=== PATIENT | female | born 1965 | race Caucasian/White ===

== ENCOUNTER 2019-01-19 14:19 | Observation (INO) ==
[2019-01-19] MEDS ORDERED: methylPREDNISolone 125 MG/2 ML VIAL IVP ONE (14:30)
[2019-01-19] MEDS ORDERED: 0.9 % Sodium Chloride 1,000 ML IVC ONE (14:30)
[2019-01-19] MEDS ORDERED: Albuterol 2.5 MG/3 ML NEBULIZER IH ONE ×2 (14:30→15:27)
[2019-01-19] MEDS ORDERED: Ipratropium/Albuterol Neb 3 ML IH ONE (14:30)
--- NOTE | 2019-01-19 14:38 | Emergency Department Note ---
Disposition Clinical Impression: Acute exacerbation of chronic obstructive airways disease Disposition: Admitted As Inpatient Time of Disposition: 16:00 ( will admit) SOB HPI - General Chief Complaint: ED Shortness of Breath/Dyspnea Stated Complaint: helio Time Seen by Provider: 01/19/19 14:36 Source: patient, other Mode of arrival: ambulatory Limitations: no limitations Nursing Notes Reviewed: Yes Vital Signs Reviewed: Yes - History of Present Illness 53-year-old female with history of smoking 1 pack a day 30+ years presents to triage with complaints of shortness of breath moderate respiratory distress. Patient is having active wheezing on exam, and having a difficult time speaking secondary to shortness of breath. Patient reports having history of asthma. Pt Subjective Complaint: shortness of breath, cough Onset (ago): Just [employer] Context: occurred during exertion Severity: moderate Consistency/Duration: constant Improves with: oxygen, rest Worsens with: nothing Known history of: COPD Associated symptoms: Reports: wheezing Cough present: No Cough Description: Involuntary Cough Frequency: Continuous Sputum production: No Sputum Amount: Moderate Sputum Color: Yellow - Related Data Home oxygen amount: none Allergies Allergy/AdvReac Type Severity Reaction Status Date / Time Amoxicillin Allergy Rash Verified 01/19/19 14:21 codeine Allergy Rash Verified 01/19/19 14:21 All systems ED: reviewed and negative except as stated. Constitutional: Denies: fever, chills, weakness, weight change Eyes: Denies: eye pain, eye discharge, vision change ENT ED: Denies: ear pain, throat pain, dental pain, hearing loss, epistaxis, congestion, dysphagia Cardiovascular: Denies: chest pain, palpitations, dyspnea on exertion, edema, syncope Respiratory: Reports: dyspnea, wheezes. Denies: cough, hemoptysis, stridor Gastrointestinal: Denies: abdominal pain, nausea, vomiting, diarrhea, con stipation, hematemesis, melena, hematochezia Genitourinary: Denies: dysuria, frequency, hematuria, discharge Musculoskeletal: Denies: back pain, neck pain, arthralgia, myalgia Integumentary: Denies: rash, abrasion, lesions Neurological: Denies: headache, weakness, numbness, paresthesias, confusion, abnormal gait, vertigo Psychiatric: Denies: anxiety, depression, suicidal thoughts, homicidal thoughts, auditory hallucinations, visual hallucinations Endocrine: Denies: fatigue Hematological/Lymphatic: Denies: easy bleeding, easy bruising Allergic/Immunologic: Denies: facial swelling, urticaria Past Medical History - Past Medical History Medical history: Reports: asthma, seizures Psychiatric history: Reports: no psych history - Social History Smoking Status: Current every day smoker Alcohol use: Reports: rarely Drug use: Reports: none Physical Exam - General Limitations: no limitations General appearance: alert - Head Head exam: atraumatic, normocephalic, normal inspection - Eye Eye exam: Present: normal appearance, PERRL, EOMI - Expanded Eye Exam Pupils: Left: reactive - ENT ENT exam: normal exam, normal oropharynx, mucous membranes moist - Expanded ENT Exam External ear exam: Present: normal external inspection Mouth exam: Present: normal external inspection Teeth exam: Present: normal inspection Throat exam: Present: normal inspection - Neck Neck exam: Present: normal inspection, full ROM, trachea midline - Chest Chest inspection: Present: normal inspection, symmetric chest wall rise - Respiratory Respiratory exam: Present: respiratory distress, wheezes - Expanded Respiratory Exam Location: wheezes: Right, Left, decreased breath sounds: Left, Right - Cardiovascular Cardiovascular exam: Present: regular rate, normal rhythm, normal heart sounds - Abdominal Exam Abdominal exam: Present: soft, Non-Tender. Absent: tenderness, distention, guarding, rebound, rigidity - Extremities Exam Extremities exam: Present: normal inspection, full ROM. Absent: tenderness, pedal edema - Expanded Upper Extremity Exam Shoulder exam: Present: normal inspection, full ROM Arm exam: Present: normal inspection, full ROM Elbow exam: Present: normal inspection, full ROM Forearm/Wrist exam: Present: normal inspection, full ROM Hand exam: Present: normal inspection, full ROM Vascular exam: Normal: capillary refill, radial pulse - Expanded Lower Extremity Exam Hip/Pelvis exam: Present: normal inspection, full ROM Upper leg exam: Present: normal inspection, full ROM Knee exam: Present: normal inspection, full ROM Lower leg exam: Present: normal inspection, full ROM Ankle exam: Present: normal inspection, full ROM Foot/toe exam: Present: normal inspection, full ROM Neurovascular/Tendon exam: Absent: motor deficit, sensory deficit, tendon deficit - Back Exam Back exam: Present: normal inspection, full ROM. Absent: tenderness - Neurological Exam Neurological exam: Present: alert, oriented X3 - Expanded Neurological Exam Patient oriented to: Present: person, place, time Coma Scale Eye Opening: Spontaneous Coma Scale Motor Response: Obeys Commands Coma Scale Verbal Response: Oriented Coma Scale Total: 15 - Psychiatric Psychiatric exam: Present: normal affect, normal mood - Skin Skin exam: Present: warm, dry, intact, normal color Course Vital Signs Temperature 98.2 F 01/19/19 14:22 Pulse Rate 96 01/19/19 14:22 Respiratory Rate 24 01/19/19 14:22 Blood Pressure 187/84 01/19/19 14:22 O2 Sat by Pulse Oximetry 95 01/19/19 14:22 Temperature 97.2 F L 01/19/19 14:30 Pulse Rate 115 01/19/19 15:45 Respiratory Rate 20 01/19/19 15:45 Blood Pressure 157/75 01/19/19 15:45 O2 Sat by Pulse Oximetry 100 01/19/19 15:45 Oxygen Delivery Oxygen Delivery Room Air Shortness of Breath/Dyspnea - MDM Narrative Medical decision making narrative: Patient was given Solu-Medrol 125 mg IV blood culture 2 is obtained patient was given Rocephin 1 g IV. CBC chemistry troponin I study within normal limits. Chest x-ray shows no acute abnormality and EKG is within normal limits. Patient was given 1 DuoNeb, 1 albuterol and given a third albuterol secondary to [place] is shortness of breath. She still has wheezing and chest is tight on exam. Spoke with Dr. Pires who is on-call for hospitalist and patient is admitted for overnight observation. - Differential Diagnosis Likely: acute exacerbation of chronic obstructive airways disease, pneumonia, asthma with exacerbation, pneumothorax - Lab Data Lab results reviewed: Yes I reviewed the patient's lab results. Result diagrams: 01/19/19 14:42 01/19/19 14:42 Lab Results 01/19/19 01/19/19 01/19/19 Range/Units 14:42 14:42 14:42 WBC 7.5 (4.3-11.1) K/mcL RBC 4.53 (3.82-4.97) M/mcL Hgb 15.2 (11.5-15.4) g/dL Hct 42.9 (35.3-44.9) % MCV 94.7 (83.0-100.0) fL MCH 33.6 H (28.0-33.3) pg MCHC 35.4 (31.6-35.5) g/dL RDW 13.6 (11.5-14.5) % Plt Count 259 (140-400) K/mcL MPV 8.6 L (9.4-12.4) fL Immature Gran % 0.1 (0-4) % Seg Neutrophils % 54.6 % Lymphocytes % 31.6 % Monocytes % 8.4 % Eosinophils % 4.5 % Basophils % 0.8 % Neutrophils # 4.1 (1.6-8.9) K/mcL Lymphocytes # 2.4 (0.6-4.6) K/mcL Monocytes # 0.6 (0.0-1.3) K/mcL Eosinophils # 0.3 (0.0-0.6) K/mcL Basophils # 0.1 (0.0-0.2) K/mcL PT 10.9 (9.4-12.1) Seconds INR 1.0 APTT 35.8 (26.0-36.0) Seconds Sodium 142 (136-145) mEq/L Potassium 3.5 (3.5-5.1) mEq/L Chloride 108 H (98-107) mEq/L Carbon Dioxide 25 (23-29) mEq/L BUN 9 (6-20) mg/dL Creatinine 0.65 (0.60-1.20) mg/dL Est GFR ( Amer) > 60 (> 60) Est GFR (Non-Af Amer) > 60 (> 60) BUN/Creatinine Ratio 14 (6-26) Glucose 116 H (70-105) mg/dL Calculated Osmolality 294 (280-300) Lactic Acid (0.5-2.2) mmol/L Calcium 9.2 (8.6-10.3) mg/dL Total Bilirubin 0.2 L (0.3-1.0) mg/dL Direct Bilirubin 0.0 (0.0-0.2) mg/dL Indirect Bilirubin 0.2 (0.0-1.2) mg/dL AST 15 (13-39) Units/L ALT 12 (7-52) Units/L Alkaline Phosphatase 125 H (34-104) Units/L Troponin I < 0.03 (< 0.04) ng/mL B-Natriuretic Peptide (Less than 100) pg/mL Serum Total Protein 7.1 (6.4-8.9) g/dL Albumin 4.1 (3.5-5.7) g/dL Globulin 3.0 (2.4-3.5) g/dL Albumin/Globulin Ratio 1.4 (1.1-2.2) 01/19/19 01/19/19 Range/Units 14:42 14:42 WBC (4.3-11.1) K/mcL RBC (3.82-4.97) M/mcL Hgb (11.5-15.4) g/dL Hct (35.3-44.9) % MCV (83.0-100.0) fL MCH (28.0-33.3) pg MCHC (31.6-35.5) g/dL RDW (11.5-14.5) % Plt Count (140-400) K/mcL MPV (9.4-12.4) fL Immature Gran % (0-4) % Seg Neutrophils % % Lymphocytes % % Monocytes % % Eosinophils % % Basophils % % Neutrophils # (1.6-8.9) K/mcL Lymphocytes # (0.6-4.6) K/mcL Monocytes # (0.0-1.3) K/mcL Eosinophils # (0.0-0.6) K/mcL Basophils # (0.0-0.2) K/mcL PT (9.4-12.1) Seconds INR APTT (26.0-36.0) Seconds Sodium (136-145) mEq/L Potassium (3.5-5.1) mEq/L Chloride (98-107) mEq/L Carbon Dioxide (23-29) mEq/L BUN (6-20) mg/dL Creatinine (0.60-1.20) mg/dL Est GFR ( Amer) (> 60) Est GFR (Non-Af Amer) (> 60) BUN/Creatinine Ratio (6-26) Glucose (70-105) mg/dL Calculated Osmolality (280-300) Lactic Acid 1.6 (0.5-2.2) mmol/L Calcium (8.6-10.3) mg/dL Total Bilirubin (0.3-1.0) mg/dL Direct Bilirubin (0.0-0.2) mg/dL Indirect Bilirubin (0.0-1.2) mg/dL AST (13-39) Units/L ALT (7-52) Units/L Alkaline Phosphatase (34-104) Units/L Troponin I (< 0.04) ng/mL B-Natriuretic Peptide 302 H (Less than 100) pg/mL Serum Total Protein (6.4-8.9) g/dL Albumin (3.5-5.7) g/dL Globulin (2.4-3.5) g/dL Albumin/Globulin Ratio (1.1-2.2) - Radiology Data Radiology results reviewed: Yes I reviewed the patient's radiology results. - EKG Data EKG attestation: Yes I reviewed and interpreted this EKG. EKG results narrative: EKG shows a sinus tachycardic rhythm regular 100 normal axis normal rhythm EKG shows normal: Reports: sinus rhythm Rate: Reports: tachycardia Rhythm: Reports: NSR [place]/QRS: Reports: normal
[2019-01-19 14:49] LABS: Basophils # 0.1 K/mcL (0.0-0.2); Basophils % 0.8 %; Eosinophils # 0.3 K/mcL (0.0-0.6); Eosinophils % 4.5 %; Hematocrit 42.9 % (35.3-44.9); Hemoglobin 15.2 g/dL (11.5-15.4); Immature Granulocytes % 0.1 % (0-4); Lymphocytes # 2.4 K/mcL (0.6-4.6); Lymphocytes % 31.6 %; Mean Corpuscular HGB Conc 35.4 g/dL (31.6-35.5); Mean Corpuscular Hemoglobin 33.6 pg (28.0-33.3); Mean Corpuscular Volume 94.7 fL (83.0-100.0); Mean Platelet Volume 8.6 fL (9.4-12.4); Monocytes # 0.6 K/mcL (0.0-1.3); Monocytes % 8.4 %; Neutrophils # 4.1 K/mcL (1.6-8.9); Platelet Count 259 K/mcL (140-400); Red Blood Count 4.53 M/mcL (3.82-4.97); Red Cell Distribution Width 13.6 % (11.5-14.5); Segmented Neutrophils % 54.6 %; White Blood Count 7.5 K/mcL (4.3-11.1)
[2019-01-19 14:57] LABS: Prothrombin Time 10.9 Seconds (9.4-12.1)
[2019-01-19 15:00] LABS: Activated Partial Thrombo Time 35.8 Seconds (26.0-36.0)
[2019-01-19 15:05] LABS: Alanine Aminotransferase 12 Units/L (7-52); Albumin 4.1 g/dL (3.5-5.7); Albumin/Globulin Ratio 1.4 (1.1-2.2); Alkaline Phosphatase 125 Units/L (34-104); Aspartate Amino Transferase 15 Units/L (13-39); BUN/Creatinine Ratio 14 (6-26); Bilirubin,Indirect 0.2 mg/dL (0.0-1.2); Bilirubin,Total 0.2 mg/dL (0.3-1.0); Blood Urea Nitrogen 9 mg/dL (6-20); Calcium 9.2 mg/dL (8.6-10.3); Carbon Dioxide 25 mEq/L (23-29); Chloride 108 mEq/L (98-107); Glucose 116 mg/dL (70-105); Osmolality,Calculated 294 (280-300); Potassium 3.5 mEq/L (3.5-5.1); Sodium 142 mEq/L (136-145); Total Protein 7.1 g/dL (6.4-8.9); eGFR For African Americans > 60 (> 60); eGFR For Non-African Americans > 60 (> 60)
[2019-01-19 15:09] LABS: Troponin I < 0.03 ng/mL (< 0.04)
[2019-01-19] MEDS ORDERED: Naloxone 0.4 MG/ML INJ IVP PRN ×2 (15:22→16:35)
[2019-01-19] MEDS ORDERED: cefTRIAXone 1,000 MG in Water for inj. (sterile) 10 ML IVP SCH (16:00)
[2019-01-20] MEDS: Benzonatate 100 MG CAPSULE PO SCH ×2 (00:30→08:08)
[2019-01-20 06:44] VITALS: BP 164/67
[2019-01-20] MEDS ORDERED: cefTRIAXone 1,000 MG in Water for inj. (sterile) 10 ML IVP SCH (09:00)
--- NOTE | 2019-01-20 10:11 | Internal Med History&Physical ---
Date of Encounter: 01/20/19 Time of Encounter: 09:40 Assessment and Plan (1) Acute exacerbation of chronic obstructive airways disease Current visit: Yes Status: Acute She states she has significantly improved and feels near her baseline. She wishes to be discharged home. Room air oximetry will be checked on 6 minute walk prior to discharge. (2) Elevated brain natriuretic peptide (BNP) level Current visit: Yes Status: Acute No previous labs for comparison. Her PCP can monitor and do further workup as needed. Internal Medicine - H&P: HPI Chief complaint: Dyspnea Admitted From: Emergency Dept Plans for Post Hospital Care: Home History of present illness: Ms. Vergara is a 53 year old female who came to emergency room stating she had worsening dyspnea with minimally productive cough and sore throat onset 01/17/2019. She denies pain fevers chills vomiting or diarrhea. She was evaluated in emergency room and was felt to have exacerbation of COPD. Respiratory history is significant for having smoked since age 13 up to one and a half packs per day. She has not had PFTs and does not use home oxygen. She has been told she has asthma. She has not seen her PCP in over a year. She feels significantly improved at present time and wishes to be discharged home. Past Med Surg Social Fam HX - Past Medical History Medical history: asthma, seizures Psychiatric history: no psych history - Past Surgical History Additional surgical history: sinus - Social History Smoking Status: Current every day smoker Alcohol use: rarely Drug use: none Internal Medicine - H&P: Meds Allergy/AdvReac Type Severity Reaction Status Date / Time Amoxicillin Allergy Rash Verified 01/19/19 14:21 codeine Allergy Rash Verified 01/19/19 14:21 All Systems PM: A 10-system review of systems was performed and is negative for pertinent findings except as documented above in the HPI. Review of systems: Gen.: She states her weight is been stable for several months Cardiovascular: She denies hypertension NC heart failure angina DVT or pulmonary embolus Respiratory: As per history of present illness GI: She denies disorders of her liver gallbladder or exocrine pancreas : She denies hematuria dysuria or kidney stones Neurologic: She denies large distribution strokes or seizures. Endocrine: She reports a history of hyperlipidemia but cannot tolerate medications. She denies diabetes or thyroid disease Hematology/oncology: She denies blood disorders cancers or anemia Psychiatric: She denies anxiety depression or other mental health issues [place] skeletal: She denies arthritis gout or other bone joint or muscle disorders. - Constitutional Vitals: Temp Pulse Resp BP Pulse Ox 98.5 F 80 18 164/67 92 01/20/19 06:41 01/20/19 06:41 01/20/19 06:41 01/20/19 06:41 01/20/19 06:41 Exam: Gen.: She is a well-developed well-nourished female resting comfortably in bed who appears in no acute distress at present time HEENT: Head is atraumatic and normocephalic. Eyes: EOMI. There is no scleral icterus. Mouth: Mucosa is moist. Neck: Supple and nontender. There is no thyromegaly or adenopathy noted. Heart: Regular without murmurs gallops or ectopics Lungs: She has diminished breath sounds diffusely. No wheezes or crackles are heard. Abdomen: Soft and nontender. No masses or guarding are noted. Extremities: There is no cyanosis edema or clubbing noted. Dorsalis pedis and posttibial pulses are 1-2 over 2 bilaterally. Neurologic: Mental status: She is talkative and a good historian. Cranial nerves: Smile is symmetric. Forehead wrinkles bilaterally. Tongue protrudes midline. EOMI. Motor: There is no pronator drift. Cerebellar: Finger to nose is intact bilaterally. Skin: Warm and dry Internal Med - H&P Results - Labs CBC & Chem 7: 01/19/19 14:42 01/19/19 14:42 Labs: Short CBC 01/19/19 Range/Units 14:42 WBC 7.5 (4.3-11.1) K/mcL Hgb 15.2 (11.5-15.4) g/dL Hct 42.9 (35.3-44.9) % Plt Count 259 (140-400) K/mcL Neutrophils # 4.1 (1.6-8.9) K/mcL BMP 01/19/19 14:42 Sodium 142 Potassium 3.5 Chloride 108 H Carbon Dioxide 25 BUN 9 Creatinine 0.65 Glucose 116 H Calcium 9.2 Cardiac Enzymes 01/19/19 Range/Units 14:42 Troponin I < 0.03 (< 0.04) ng/mL Liver Function 01/19/19 Range/Units 14:42 Total Bilirubin 0.2 L (0.3-1.0) mg/dL Direct Bilirubin 0.0 (0.0-0.2) mg/dL AST 15 (13-39) Units/L ALT 12 (7-52) Units/L Alkaline Phosphatase 125 H (34-104) Units/L Albumin 4.1 (3.5-5.7) g/dL - Impressions ITS Impressions Chest X-Ray 01/19/19 14:30 IMPRESSION: No acute cardiopulmonary disease. D/ / Randa Ordoñez MD / Randa Ordoñez MD Interpreting Provider: Randa Ordoñez MD
--- NOTE | 2019-01-20 10:18 | Discharge Summary ---
Orders not resulted at time of discharge: Pending orders 01/19/19 14:30 ECG 12 lead ECG [ECG] Stat 01/19/19 14:53 Culture,Blood [BC] Stat Date of Encounter: 01/20/19 Time of Encounter: 09:40 - Discharge Diagnosis (1) Acute exacerbation of chronic obstructive airways disease Priority: Primary Status: Acute (2) Elevated brain natriuretic peptide (BNP) level Priority: Secondary Status: Acute Hospital course: Ms. Vergara is a 53 year old female who came to emergency room stating she had worsening dyspnea with minimally productive cough and sore throat onset 01/17/2019. She denies pain fevers chills vomiting or diarrhea. She was evaluated in emergency room and was felt to have exacerbation of COPD. Initial orders were written by the emergency room physician. I saw her on January 20 and performed the history and physical. She was given Rocephin and Solu- Medrol in emergency room. She remained afebrile during hospitalization. When I saw her on January 20 she stated she felt significantly improved and wished to be discharged home. I encouraged her to become a nonsmoker. Room air oximetry will be checked on 6 minute walk prior to discharge. She will be prescribed albuterol HFA inhaler for prn use. She will follow with her PCP Rosemarie Thibodeaux CNP within 1 week. Further workup for elevated BN peptide can be done as needed. - Time Spent with Patient Total time spent providing and/or coordinating discharge services: - Discharge Medications Prescriptions: New Albuterol Sulfate [Albuterol Inhaler] 2 puff IH Q4HR PRN #1 [email or web address] PRN Reason: Dyspnea Home Medications: Albuterol Sulfate [Albuterol Inhaler] 2 puff IH Q4HR PRN #1 [email or web address] 01/20/19 [Rx] Allergies/Adverse Reactions: Allergy/AdvReac Type Severity Reaction Status Date / Time Amoxicillin Allergy Rash Verified 01/19/19 14:21 codeine Allergy Rash Verified 01/19/19 14:21 Date of admission: 01/19/19 15:41 Primary care physician: Rosemarie Thibodeaux CNP - Constitutional Vitals: Temp Pulse Resp BP Pulse Ox 98.5 F 80 18 164/67 92 01/20/19 06:41 01/20/19 06:41 01/20/19 06:41 01/20/19 06:41 01/20/19 06:41 - Patient Status Disposition: Home, Self-Care - Discharge Instructions Follow Up With: Rosemarie Thibodeaux, DECORATING SUPERVISOR [Advanced Practice Nurse] - 1 week - Diet and Activity Activity: resume usual activities as tolerated Diet: advance to your usual diet
--- NOTE | 2019-01-21 20:43 | Electrocardiograph Report ---
[address] [place], [place] [address] Test Date: 2019-01-19 Pat Name: Prachi Vergara Department: EDP-14 Room: [facility] Gender: F Ophthalmic Tech: : 1965 Requested By: Rosalinda Howell Order Number: [id number] Reading MD: Wade Mahoney Measurements Intervals [place] Rate: 100 P: 72 [place]: 157 QRS: 68 QRSD: 87 T: 71 QT: 353 QTc: 456 Interpretive Statements Sinus tachycardia Consider lateral myocardial injury or evolving infarction Electronically Signed On 01-21-2019 20:41:38 EDT by Wade Mahoney
== END 2019-01-20 11:20 | disposition home or self-care (01) ==
LOC: EMEROOPIK 14:19 → INPPIK 14:19
PROVIDERS: ADMIT Internal Medicine; ATTEND Internal Medicine